=== PATIENT | male | born 1990 | race Caucasian/White ===

== ENCOUNTER 2025-02-03 15:22 | Emergency (ER) | payer OTHER, SELFPAY ==
[2025-02-03] VITALS (8 sets, daily range): BP systolic 119–149; BP diastolic 66–108; PULSE 78–98; RESP 14–22; TEMP 36.9; O2SAT 94–97
--- OUTSIDE RECORDS SUMMARY | 2025-02-03 09:30 | XMS_ITS | Encounter Summary ---
Author Organization [facility] Address [address] [place] [address] Care Team Providers Care Bolt Sorter Name Role Phone Mary Farr MD Primary Care Provider [phone] Reason for Visit * Reason Comments moods and drinking follow up Patient sta amie things are not improving and actually feels like they are getting worse. Flu shot Patient declined flu shot today. Encounter Details Date Type Department Care Team (Late st Contact Info) Description 02/03/2025 9:30 AM AFTER SCHOOL CAREGIVER Office Visit [facility] at Work [employer] [place] [address] [place] [address] Nicole Brooke, [facility] [address] [place] [address] Alcohol abuse, daily use (Primary Dx); Mixed anxiety and depressive disorder; History of suicidal behavior Social History Tobacco Use Types Packs/Day Years Used Date Smoking Tobacco: Former Cigarettes 0.3 10 Alcohol Use Standard Drinks/Week Comments Yes 25 (1 standard drink = 0.6 oz pu re alcohol) Sex and Gender Information Value Date Recorded Sex Assigned at Not on file Legal Sex Male 12:22 PM AFTER SCHOOL CAREGIVER Gender Identity Not on file Sexual Orientation Not on file documented as of this encounter Last Filed Vital Signs Vital Sign Reading Time Taken Comments Blood Pressure 134/82 02/03/2025 8:59 AM AFTER SCHOOL CAREGIVER Pulse 105 02/03/2025 8:59 AM AFTER SCHOOL CAREGIVER Temperature 36.6 C (97.8 F) 02/03/2025 8:59 AM AFTER SCHOOL CAREGIVER Respiratory Rate 18 02/03/2025 8:59 AM AFTER SCHOOL CAREGIVER Oxygen Saturation 97% 02/03/2025 8:59 AM AFTER SCHOOL CAREGIVER Inhaled Oxygen Concentration - - Weight 107.5 kg (237 lb) 02/03/2025 8:59 AM AFTER SCHOOL CAREGIVER Height 175.3 cm (5' 9) 02/03/2025 8:59 AM AFTER SCHOOL CAREGIVER Body Mass Index 35 02/03/2025 8:59 AM AFTER SCHOOL CAREGIVER documented in this encounter Progress Notes * Nicole Brooke ANP - 02/03/2025 9:44 AM CST Depression Screen Positive: PHQ-2 score >= 3 or PHQ-9 score >= 9 PHQ-2 Total: 5 (02/03/2025 9:00 AM) PHQ-9 Total: 17 (02/03/2025 9:00 AM) DEPRESSION PLAN OF CARE His depression screen was positive. Referral to [facility] for follow-up R SCHOOL CAREGIVER * Nicole Brooke ANP - 02/03/2025 9:17 AM CST HISTORY OF PRESENT ILLNESS Karsten Rice, a 34 y.o. male presents with a Chief Complaint of moods and drinking follow up (Patient states things are not improving and actually feels like they are getting worse.) and Flu shot (Patient declined flu shot today.) Here in follow up of anxiety and alcohol abuse. Drinking 10-15 liquor shots per day. Living with Sister and brother in law since moving here from [facility] for this job at [employer]. has had enough and threatened divorce. 12/10 he was found in a park reported nude and planning to take his life by walking into the water to drown himself. He was taken into police custody before the attempt. Taken to [facility] ,[place], [place] . Transferred to psych unit x 24 hours and monitored. Discharged home to follow up with therapist. No psychiatry FU or medication changes. ED report states he planned to use firearms to kill himself. Currently reports no access to firearms. Reports gets shaky when tries to stop drinking. Currently he is interested in medication to help him stop drinking fully. He is willing to go to rehab as long as his job is not effected. REVIEW OF SYSTEMS Review of Systems Constitutional: Positive for fatigue. Respiratory: Negative. Cardiovascular: Negative. Psychiatric/Behavioral: Positive for dysphoric mood and sleep disturbance. Negative for self-injuryand suicidal ideas (none current). The patient is nervous/anxious. Objective PHYSICAL EXAM BP 134/82 (BP Location: Right arm, Patient Position (BP): Sitting, BP Cuff Size: Adult) Pulse (!)105 Temp 97.8 ??F (36.6 ??C) (Tympanic) Resp 18 Ht 5' 9 (1.753 m) Wt 107.5 kg (237 lb) SpO2 97% BMI 35.00 kg/m?? Physical Exam Constitutional: General: He is not in acute distress. HENT: Head: Normocephalic. Eyes: General: No scleral icterus. Conjunctiva/sclera: Conjunctivae normal. Cardiovascular: Rate and Rhythm: Normal rate and regular rhythm. Heart sounds: Normal heart sounds. Musculoskeletal: Cervical back: Neck supple. Psychiatric: Mood and Affect: Mood normal. Comments: Mildly anxious. Good eye contact. Answers questions easily. Well groomed Procedures Assessment ASSESSMENT and PLAN: 1. Alcohol abuse, daily use (Primary) Recommend inpt or OP rehab, pending on facility assessment. He is willing. Was given contact information for [facility] and he will call today. He reports good support from . 2. Mixed anxiety and depressive disorder Increase zoloft dose. - sertraline (Zoloft) 100 mg tablet; Take 1 Tablet (100 mg) by mouth daily. Dispense: 30 Tablet; Refill: 0 3. History of suicidal behavior Not actively suicidal. Monitor. FOLLOW UP 4 weeks or with rehab facility. Appropriate medications prescribed and pt instructed in risks , benefits and side effects. Appropriate patient instructions provided . See details in AVS Medications and options explained to include common side effects. Understanding of medications, course, diagnosis, and expectations were expressed by patient/guardian. Pt advised to call my office in one week if not contacted with any ordered test results. TORSTEN Ha 02/03/2025 [facility] [employer] [facility] [address] [address] Some of this encounter may have been transcribed using [employer] computerized voicerecognition without a human moisture meter reader. This report may or may not have been adjusted for typographical or medical and syntax errors. R SCHOOL CAREGIVER documented in this encounter Miscellaneous Notes * Patient Instructions - Nicole Brooke ANP - 02/03/2025 9:30 AM AFTER SCHOOL CAREGIVER For more than four decades, [facility]??? has provided comprehensive addiction treatment for adults ages 18 and older. Addiction and mental illness are treatable yet chronic health problems. Many individuals living with alcohol and drug addiction also have a mental health issue. Our res earch-tested programs address both addiction and mental health to help adults achieve recovery and maintain sobriety. We believe that people should get addiction treatment in the least restrictive environment possible. Assessment An assessment is the first step in determining what treatment, if any, is needed. It takes into account all aspects of a person???s life to ensure that individual needs are addressed. To learn more, call us at [phone]. For [facility] and for the [facility], call [phone]. For the [facility], call [phone]. Based on assessment results, we create a unique treatment plan. Length of treatment depends on the person's progress toward goals. Outpatient Treatment This type of treatment lets individuals work on their recovery while living at home. It is appropriate for those who are struggling with addiction and are ready to learn to abstain from substance use, are motivated to change, and have a supportive living environment. Outpatient treatment involves up to eight hours of counseling each week. Patients are encouraged to continue their work in self-help groups such as Alcoholics Anonymous (AA), Narcotics Anonymous (NA), and Celebrate Recovery. Intensive Outpatient Treatment This type of treatment requires nine or more hours of counseling each week. Treatment occurs in a small group setting. Length of treatment is determined by the patient???s needs. As with outpatient treatment, participation in self-help groups is encouraged. Residential Treatment This type of treatment is for adults who need a structured and supportive environment to maintain recovery and who require help to prevent further damage to their physical and emotional health. Licensed and certified counselors provide treatment in a comfortable setting. Residents participate in individual, group, and family counseling and learn life skills such as decision-making, stress management, assertiveness, coping, and relapse prevention. Care is supervised 24 hours a day. Residents have access to a psychiatrist, medical services, catered meals, and recreation. An important part of residential treatment is developing a continuing care program, which may include outpatient counselingand referrals to community support groups. Medication-Assisted Treatment This type of treatment helps people living with addiction to deal with the short-term and long-termeffects of withdrawal. MAT helps individuals manage physical symptoms and reduce cravings while focusing on recovery and behavior changes. MAT combines medication, counseling, and community support to help people overcome dependence on opiates like heroin and prescription painkillers. [place], [place] [phone] Partner with [facility] in [facility] [place] [address] [place] [address] [facility] -- in [place], [place] R SCHOOL CAREGIVER R SCHOOL CAREGIVER R SCHOOL CAREGIVER R SCHOOL CAREGIVER R SCHOOL CAREGIVER documented in this encounter Plan of Treatment Upcoming Encounters Date Type Department Care Team (Late st Contact Info) Description 03/03/2025 9:00 AM AFTER SCHOOL CAREGIVER Office Visit [facility] at Work [employer] [place] [address] [place] [address] Nicole Brooke ANP [address] [place] [address] documented as of this encounter Visit Diagnoses Diagnosis Alcohol abuse, daily use- Primary Nondependent alcohol abuse, continuous drinking behavior Mixed anxiety and depressive disorder Dysthymic disorder History of suicidal behavior documented in this encounter Additional Health Concerns Assessment Noted Time PHQ-9 Depression Total Score: 5 02/04/20 25 9:00 AM AFTER SCHOOL CAREGIVER documented as of this encounter Care Teams Bolt Sorter Relationship Specialty Start Date End Date Mary Farr MD [address] [place] [id number] PCP - General Internal Medicine 10/28/24 documented as of this encounter
--- OUTSIDE RECORDS SUMMARY | 2025-02-03 09:30 | XMS_ITS | Encounter Summary ---
Author Organization [facility] Address [address] [place] [address] Care Team Providers Care Building Coordinator Name Role Phone Mary Farr MD Primary Care Provider Reason for Visit * Reason Comments moods and drinking follow up Patient sta amie things are not improving and actually feels like they are getting worse. Flu shot Patient declined flu shot today. Encounter Details Date Type Department Care Team (Late st Contact Info) Description 02/03/2025 9:30 AM STUDIO OPERATIONS MANAGER Office Visit [facility] at Work [employer] [address] [place] [address] Nicole Brooke, [facility] [address] [place] [address] Alcohol abuse, daily use (Primary [...] on file Legal Sex Male 12:22 PM STUDIO OPERATIONS MANAGER Gender Identity Not on file Sexual Orientation Not on file documented as of this encounter Last Filed Vital Signs Vital Sign Reading Time Taken Comments Blood Pressure 134/82 02/03/2025 8:59 AM STUDIO OPERATIONS MANAGER Pulse 105 02/03/2025 8:59 AM STUDIO OPERATIONS MANAGER Temperature 36.6 C (97.8 F) 02/03/2025 8:59 AM STUDIO OPERATIONS MANAGER Respiratory Rate 18 02/03/2025 8:59 AM STUDIO OPERATIONS MANAGER Oxygen Saturation 97% 02/03/2025 8:59 AM STUDIO OPERATIONS MANAGER Inhaled Oxygen Concentration - - Weight 107.5 kg (237 lb) 02/03/2025 8:59 AM STUDIO OPERATIONS MANAGER Height 175.3 cm (5' 9) 02/03/2025 8:59 AM STUDIO OPERATIONS MANAGER Body Mass Index 35 02/03/2025 8:59 AM STUDIO OPERATIONS MANAGER documented in this encounter Progress Notes * Nicole Brooke ANP - 02/03/2025 9:44 AM CST Depression Screen Positive: PHQ-2 score >= 3 or PHQ-9 score >= 9 PHQ-2 Total: 5 (02/03/2025 9:00 AM) PHQ-9 Total: 17 (02/03/2025 9:00 AM) DEPRESSION PLAN OF CARE His depression screen was positive. Referral to [facility] for follow-up IO OPERATIONS MANAGER * Nicole Brooke ANP - 02/03/2025 9:17 [...] brother in law since moving here from [facility] for this job at [employer]. has had enough and threatened divorce. 12/10 he was found in a park reported nude and planning to take his life by walking into the water to drown himself. He was taken into police custody before the attempt. Taken to [facility] ,[place], [place] . Transferred to psych unit x [...] is willing. Was given contact information for [employer] and he will call today. He reports [...] any ordered test results. TORSTEN Ha 02/03/[address] [facility] [employer] [facility] [address] [address] Some of this encounter may have been transcribed using [employer] Speaking computerized voicerecognition without a human travel specialist. This report may or may not have been adjusted for typographical or medical and syntax errors. IO OPERATIONS MANAGER documented in this encounter Miscellaneous Notes * Patient Instructions - Nicole Brooke ANP - 02/03/2025 9:30 AM STUDIO OPERATIONS MANAGER For more than four decades, [facility]??? has provided comprehensive addiction treatment for [...] addressed. To learn more, call us at [phone]. For [facility] and for the [facility], call [phone]. For the [facility], call [phone]. Based on assessment results, we create a [...] on opiates like heroin and prescription painkillers. [place], [place] [phone] Partner with [facility] in [facility] [place] [address] [place] [address] [facility] -- in [place], [place] IO OPERATIONS MANAGER IO OPERATIONS MANAGER IO OPERATIONS MANAGER IO OPERATIONS MANAGER IO OPERATIONS MANAGER documented in this encounter Plan of Treatment Upcoming Encounters Date Type Department Care Team (Late st Contact Info) Description 03/03/2025 9:00 AM STUDIO OPERATIONS MANAGER Office Visit [facility] at Work [employer] [address] [place] [address] Nicole Brooke ANP [address] [place] [address] documented as of this encounter Visit Diagnoses Diagnosis Alcohol abuse, daily use- Primary Nondependent alcohol abuse, continuous drinking behavior Mixed anxiety and depressive disorder Dysthymic disorder History of suicidal behavior documented in this encounter Additional Health Concerns Assessment Noted Time PHQ-9 Depression Total Score: 5 02/04/20 25 9:00 AM STUDIO OPERATIONS MANAGER documented as of this encounter Care Teams Building Coordinator Relationship Specialty Start Date End Date Mary Farr MD [address] [place] [phone] PCP - General Internal Medicine 10/28/24 documented as of this encounter
--- NOTE | 2025-02-03 15:26 | ECG_ITS ---
Test Date: 2025-02-03 15:44:[address] Rate: 98 P: 9 AR: 136 QRS: -16 QRSD: 109 T: -24 QT: 342 QTc: 437 Interpretive Statements SINUS RHYTHM INCOMPLETE RIGHT BUNDLE BRANCH BLOCK VOLTAGE CRITERIA FOR LVH, CONSIDER NORMAL VARIANT NONSPECIFIC T-WAVE ABNORMALITY No previous ECG available for comparison Electronically Signed On 02-04-2025 05:50:42 GROUNDS MANAGER by Joe Rubio D.O
[2025-02-03 15:49] LABS: Hematocrit 51.6 % (42.0-52.0); Hemoglobin 17.8 g/dL (14.0-18.0); Immature Granulocyte Percent A 0.7 % (0-0.5); Lymphocytes Absolute Auto 1.81 K/mm3 (0.9-3.2); Mean Corpuscular HGB Conc 34.5 g/dl (32-36); Mean Corpuscular Hemoglobin 31.3 pg (26-34); Mean Corpuscular Volume 90.7 fl (80-100); Nucleated Red Blood Cells Absolute Auto 0.000 K/mm3 (0.0-0.012); Nucleated Red Blood Cells Perc 0.0 % (0.0-0.2); Platelet Count Result 389 k/mm3 (150-375); Red Blood Count 5.69 M/mm3 (4.6-6.20); White Blood Count 10.3 K/mm3 (4.5-10.0)
--- NOTE | 2025-02-03 15:53 | PC.NURSE ---
This RN spoke with [place] pharmacist with poison control. Overdose is suspected but not confirmed. Pt. possibly overdosed on 52, 800mg (41,600mg total) Dolprofen tablets. Per pharmacist, majority of symptoms will be GI related. Best treat with a PPI medication. More severe symptoms are seen when pt. takes 400mg/kg, which would be 43,600mg for this pt. Symptomatic/supportive care recommended.
[2025-02-03 16:02] LABS: Acetaminophen < 10 ug/mL (10-30); Salicylate < 1.0 mg/dL (2-20)
[2025-02-03 16:03] LABS: Alanine Aminotransferase 31 U/L (6-50); Albumin Level 4.4 g/dL (3.5-5.1); Alkaline Phosphatase 67 U/L (38-126); Anion Gap 15 mmol/L (4-12); Aspartate Amino Transferase 39 U/L (17-59); Bilirubin,Total 0.5 mg/dL (0.2-1.3); Blood Urea Nitrogen 8 mg/dL (9-20); Calcium 8.4 mg/dL (8.4-10.2); Carbon Dioxide 20 mmol/L (22-30); Chloride 105 mmol/L (98-107); Estimated CRCL calculation 86 ml/min; Estimated Glomerular Filt Rate > 60; Glucose 105 mg/dL (65-110); Potassium 3.2 mmol/L (3.4-5.0); Sodium 140 mmol/L (137-145); Total Protein 7.6 g/dL (6.3-8.2)
[2025-02-03 16:25] LABS: SARS-CoV-2 RNA PCR Negative (Negative)
[2025-02-03 16:29] LABS: Cannabinoid Screen Urine Negative (Negative)
[2025-02-03 16:32] LABS: Add Urine Microscopic? YES; Appearance Urine Clear (Clear); Glucose Urine UA Negative (Negative); Leukocyte Esterase Ur 1+ LEU/UL (Negative); Need Manual Microscopic Reviewed; Nitrate Urine Negative (Negative); Non Pathogenic Casts 0-2; Specific Grav Ur 1.007 (1.001-1.035)
--- NOTE | 2025-02-03 16:32 | PC.NURSE ---
Pt. is alert, A&Ox4. at bedside. Speech clear. Pt. admits to drinking 15 fireball and taking 52, 800mg Dolprofen at 1400 in attempt to end his life. Denies HI. Earring gauges and 2x nose piercings removed from pt. nose per policy and given to pt. who is at bedside..
[2025-02-03 16:33] LABS: Thyroid Stimulating Hormone 1.750 uIU/mL (0.465-4.680)
--- NOTE | 2025-02-03 16:38 | ED_ITS ---
HPI - General Adult General Chief complaint: Overdose <Brayden Miramontes MD - Last Filed: 02/04/25 07:41> Stated complaint: intentional OD <Brayden Miramontes MD - Last Filed: 02/04/25 07:41> Time Seen by Provider: 02/03/25 15:24 <Brayden Miramontes MD - Last Filed: 02/04/25 07:41> History of Present Illness HPI narrative: 34-year-old male presents to the emergency department for evaluation after an intentional overdose attempt. Patient has been struggling depression for an extended period time. Patient does not have follow-up with Psychiatry or a counselor. Patient reportedly drank 15 shots of fireball along with 50 to x 800 mg. Patient states this was an attempt for suicide. Poison Control was consulted. <Brayden Miramontes MD - Last Filed: 02/04/25 07:41> Related Data Allergies/adverse reactions: Allergies Allergy/AdvReac Type Severity Reaction Status Date / Time No Known Allergies Allergy Verified 02/03/25 16:23 <Brayden Miramontes MD - Last Filed: 02/04/25 07:41> Review of Systems 2 Review of Systems: All systems reviewed & are unremarkable except as noted in HPI and below <Brayden Miramontes MD - Last Filed: 02/04/25 07:41> Exam 2 Narrative: APPEARANCE: Well appearing, no pain, no distress, well-nourished. HEAD: normocephalic, atraumatic. EYES: PERRLA/EOMI, conjunctivae clear. NOSE: Normal no drainage EARS:TMS clear with good light reflex. THROAT: Pharynx clear, no exudate. NECK: Supple. No adenopathy, no masses. RESPIRATORY: Airway patent, respirations nonlabored. Clear to auscultation bilaterally, no rales, rhonchi, wheezing. CARDIOVASCULAR: Regular rate and rhythm without murmurs rubs or gallops. ABDOMINAL: Soft, nontender, nondistended, normal bowel sounds MUSCULOSKELETAL: Moves all extremities. Strength/ROM intact, No edema, No calf tenderness. NEURO: Alert. Cranial nerves II through XII intact. Good gait. Good coordination SKIN: Warm, dry. Normal Color <Brayden Miramontes MD - Last Filed: 02/04/25 07:41> Course Course Emergency Course: Patient care signed over by previous provider pending sobriety and psychiatric evaluation. Patient is hemodynamically stable. Repeat alcohol level on repeat kidney function are normal and alcohol level under 80. Cleared for psychiatric evaluation at this time. Sitter still at bedside. Patient calm and cooperative. Awaiting behavioral health evaluation at this time. Behavioral health team has evaluated the patient and after long discussions with the patient and his felt like he was appropriate for safety planning and going home with regular outpatient follow-up. Patient would like to go home at this time and safe for discharge after safety plan by crisis team. Family member () comfortable with the plan. <Guille Flores MD - Last Filed: 02/04/25 02:10> Vital Signs Vital signs: Vital Signs Temperature 98.5 F 02/03/25 15:20 Pulse Rate 96 02/03/25 15:20 Respiratory Rate 14 02/03/25 15:20 Blood Pressure 149/108 H 02/03/25 15:20 Pulse Oximetry 95 02/03/25 15:20 Oxygen Delivery Room Air 02/03/25 15:20 Temperature 98.5 F 02/03/25 15:20 Pulse Rate 80 02/04/25 01:33 Respiratory Rate 19 02/04/25 01:33 Blood Pressure 130/82 02/04/25 01:33 Pulse Oximetry 100 02/04/25 01:33 Oxygen Delivery Room Air 02/03/25 15:38 <Brayden Miramontes MD - Last Filed: 02/04/25 07:41> Vital Signs Temperature 98.5 F 02/03/25 15:20 Pulse Rate 96 02/03/25 15:20 Respiratory Rate 14 02/03/25 15:20 Blood Pressure 149/108 H 02/03/25 15:20 Pulse Oximetry 95 02/03/25 15:20 Oxygen Delivery Room Air 02/03/25 15:20 Temperature 98.5 F 02/03/25 15:20 Pulse Rate 80 02/04/25 01:33 Respiratory Rate 19 02/04/25 01:33 Blood Pressure 130/82 02/04/25 01:33 Pulse Oximetry 100 02/04/25 01:33 Oxygen Delivery Room Air 02/03/25 15:38 <Guille Flores MD - Last Filed: 02/04/25 02:10> Medical Decision Making MDM Narrative Medical decision making narrative: 34-year-old male present to the emergency department for evaluation for alcohol and ibuprofen overdose. Patient states he no longer wishes to . Patient is currently afebrile but does have a leukocytosis of 10.3 hemoglobin of 17.8. Patient has a mild elevation of creatinine of 1.32, patient is tolerating p.o.. Patient UA was negative for infection and patient's drug screen was negative for salicylates and acetaminophen. Patient's ethanol was elevated at 213 at 3:39 p.m. repeat blood alcohol is pending. Once patient is medically cleared he will need to be evaluated by crisis. <Brayden Miramontes MD - Last Filed: 02/04/25 07:41> Vital Signs Vital Signs: Vital Signs Temperature 98.5 F 02/03/25 15:20 Pulse Rate 96 02/03/25 15:20 Respiratory Rate 14 02/03/25 15:20 Blood Pressure 149/108 H 02/03/25 15:20 Pulse Oximetry 95 02/03/25 15:20 Oxygen Delivery Room Air 02/03/25 15:20 Temperature 98.5 F 02/03/25 15:20 Pulse Rate 80 02/04/25 01:33 Respiratory Rate 19 02/04/25 01:33 Blood Pressure 130/82 02/04/25 01:33 Pulse Oximetry 100 02/04/25 01:33 Oxygen Delivery Room Air 02/03/25 15:38 <Brayden Miramontes MD - Last Filed: 02/04/25 07:41> Vital Signs Temperature 98.5 F 02/03/25 15:20 Pulse Rate 96 02/03/25 15:20 Respiratory Rate 14 02/03/25 15:20 Blood Pressure 149/108 H 02/03/25 15:20 Pulse Oximetry 95 02/03/25 15:20 Oxygen Delivery Room Air 02/03/25 15:20 Temperature 98.5 F 02/03/25 15:20 Pulse Rate 80 02/04/25 01:33 Respiratory Rate 19 02/04/25 01:33 Blood Pressure 130/82 02/04/25 01:33 Pulse Oximetry 100 02/04/25 01:33 Oxygen Delivery Room Air 02/03/25 15:38 <Guille Flores MD - Last Filed: 02/04/25 02:10> Lab Data Result diagrams: 02/03/25 15:39 02/03/25 22:11 <Brayden Miramontes MD - Last Filed: 02/04/25 07:41> Labs: Lab Results 02/03/25 02/03/25 02/03/25 Range/Units 15:39 16:02 22:11 WBC 10.3 H (4.5-10.0) K/mm3 RBC 5.69 (4.6-6.20) M/mm3 Hgb 17.8 (14.0-18.0) g/dL Hct 51.6 (42.0-52.0) % MCV 90.7 (80-100) fl MCH 31.3 (26-34) pg MCHC 34.5 (32-36) g/dl RDW 13.2 (11.5-14.5) % Plt Count 389 H (150-375) k/mm3 MPV 8.6 (7.4-10.4) fl Immature Gran % (Auto) 0.7 H (0-0.5) % Neut % (Auto) 72.2 (45.5-73.1) % Lymph % (Auto) 17.5 L (18.3-44.2) % Lipscomb % (Auto) 7.5 (2.6-8.5) % Eos % (Auto) 1.1 (0-4.4) % Baso % (Auto) 1.0 (0.2-1.2) % Lymph # (Auto) 1.81 (0.9-3.2) K/mm3 Lipscomb # (Auto) 0.8 H (0.1-0.6) K/mm3 Eos # (Auto) 0.1 (0-0.3) K/mm3 Baso # (Auto) 0.1 (0.0-0.1) K/mm3 Abs Immat Gran (auto) 0.07 H (0.00-0.031) K/mm3 Absolute Neuts (auto) 7.5 H (1.3-6.7) K/mm3 Absolute Nucleated RBC 0.000 (0.0-0.012) K/mm3 Nucleated RBC % 0.0 (0.0-0.2) % Sodium 140 139 (137-145) mmol/L Potassium 3.2 L 3.4 (3.4-5.0) mmol/L Chloride 105 107 (98-107) mmol/L Carbon Dioxide 20 L 20 L (22-30) mmol/L Anion Gap 15 H 12 (4-12) mmol/L BUN 8 L 8 L (9-20) mg/dL Creatinine 1.32 H 1.23 (0.7-1.3) mg/dL Estim Creat Clear Calc 86 92 ml/min Estimated GFR > 60 > 60 (59 - ) Glucose 105 96 (65-110) mg/dL Calcium 8.4 8.4 (8.4-10.2) mg/dL Total Bilirubin 0.5 (0.2-1.3) mg/dL AST 39 (17-59) U/L ALT 31 (6-50) U/L Alkaline Phosphatase 67 (38-126) U/L Total Protein 7.6 (6.3-8.2) g/dL Albumin 4.4 (3.5-5.1) g/dL TSH 1.750 (0.465-4.680) uIU/mL Urine Color Yellow (Yellow) Urine Appearance Clear (Clear) Urine pH 6.0 (5.0-9.0) Ur Specific [place] 1.007 (1.001-1.035) Urine Protein Trace (Negative) mg/dL Urine Glucose (UA) Negative (Negative) mg/dL Urine Ketones Negative (Negative) mg/dL Ur Blood (Man) Negative (Negative) Urine Nitrate Negative (Negative) Urine Bilirubin Negative (Negative) Urine Urobilinogen 0.2 (<2.0) mg/dL Add Ur Microanalysis Reviewed Leukocyte Esterase Rfl 1+ H (Negative) CYNTHIA/UL Urine RBC 0-2 (0-2) /hpf Urine WBC 0-5 (0-3) /hpf Ur Squamous Epith Cells None seen (Few) /hpf Urine Bacteria None seen /hpf Urine Casts 0-2 Salicylates < 1.0 L (2-20) mg/dL Urine Opiates Screen Negative (Negative) Urine Methadone Screen Negative (Negative) Acetaminophen < 10 L (10-30) ug/mL Ur Barbiturates Screen Negative (Negative) Ur Phencyclidine Scrn Negative (Negative) Ur Amphetamine Screen Negative (Negative) U Benzodiazepines Scrn Negative (Negative) Urine Cocaine Screen Negative (Negative) U Cannabinoids Screen Negative (Negative) Ethyl Alcohol 213 79 (<10) mg/dL SARS-CoV-2 RNA (RT-PCR) Negative (Negative) <Brayden Miramontes MD - Last Filed: 02/04/25 07:41> Lab Results 02/03/25 02/03/25 02/03/25 Range/Units 15:39 16:02 22:11 WBC 10.3 H (4.5-10.0) K/mm3 RBC 5.69 (4.6-6.20) M/mm3 Hgb 17.8 (14.0-18.0) g/dL Hct 51.6 (42.0-52.0) % MCV 90.7 (80-100) fl MCH 31.3 (26-34) pg MCHC 34.5 (32-36) g/dl RDW 13.2 (11.5-14.5) % Plt Count 389 H (150-375) k/mm3 MPV 8.6 (7.4-10.4) fl Immature Gran % (Auto) 0.7 H (0-0.5) % Neut % (Auto) 72.2 (45.5-73.1) % Lymph % (Auto) 17.5 L (18.3-44.2) % Lipscomb % (Auto) 7.5 (2.6-8.5) % Eos % (Auto) 1.1 (0-4.4) % Baso % (Auto) 1.0 (0.2-1.2) % Lymph # (Auto) 1.81 (0.9-3.2) K/mm3 Lipscomb # (Auto) 0.8 H (0.1-0.6) K/mm3 Eos # (Auto) 0.1 (0-0.3) K/mm3 Baso # (Auto) 0.1 (0.0-0.1) K/mm3 Abs Immat Gran (auto) 0.07 H (0.00-0.031) K/mm3 Absolute Neuts (auto) 7.5 H (1.3-6.7) K/mm3 Absolute Nucleated RBC 0.000 (0.0-0.012) K/mm3 Nucleated RBC % 0.0 (0.0-0.2) % Sodium 140 139 (137-145) mmol/L Potassium 3.2 L 3.4 (3.4-5.0) mmol/L Chloride 105 107 (98-107) mmol/L Carbon Dioxide 20 L 20 L (22-30) mmol/L Anion Gap 15 H 12 (4-12) mmol/L BUN 8 L 8 L (9-20) mg/dL Creatinine 1.32 H 1.23 (0.7-1.3) mg/dL Estim Creat Clear Calc 86 92 ml/min Estimated GFR > 60 > 60 (59 - ) Glucose 105 96 (65-110) mg/dL Calcium 8.4 8.4 (8.4-10.2) mg/dL Total Bilirubin 0.5 (0.2-1.3) mg/dL AST 39 (17-59) U/L ALT 31 (6-50) U/L Alkaline Phosphatase 67 (38-126) U/L Total Protein 7.6 (6.3-8.2) g/dL Albumin 4.4 (3.5-5.1) g/dL TSH 1.750 (0.465-4.680) uIU/mL Urine Color Yellow (Yellow) Urine Appearance Clear (Clear) Urine pH 6.0 (5.0-9.0) Ur Specific [place] 1.007 (1.001-1.035) Urine Protein Trace (Negative) mg/dL Urine Glucose (UA) Negative (Negative) mg/dL Urine Ketones Negative (Negative) mg/dL Ur Blood (Man) Negative (Negative) Urine Nitrate Negative (Negative) Urine Bilirubin Negative (Negative) Urine Urobilinogen 0.2 (<2.0) mg/dL Add Ur Microanalysis Reviewed Leukocyte Esterase Rfl 1+ H (Negative) CYNTHIA/UL Urine RBC 0-2 (0-2) /hpf Urine WBC 0-5 (0-3) /hpf Ur Squamous Epith Cells None seen (Few) /hpf Urine Bacteria None seen /hpf Urine Casts 0-2 Salicylates < 1.0 L (2-20) mg/dL Urine Opiates Screen Negative (Negative) Urine Methadone Screen Negative (Negative) Acetaminophen < 10 L (10-30) ug/mL Ur Barbiturates Screen Negative (Negative) Ur Phencyclidine Scrn Negative (Negative) Ur Amphetamine Screen Negative (Negative) U Benzodiazepines Scrn Negative (Negative) Urine Cocaine Screen Negative (Negative) U Cannabinoids Screen Negative (Negative) Ethyl Alcohol 213 79 (<10) mg/dL SARS-CoV-2 RNA (RT-PCR) Negative (Negative) <Guille Flores MD - Last Filed: 02/04/25 02:10> Discharge Plan Discharge Clinical Impression: Drug overdose <Brayden Miramontes MD - Last Filed: 02/04/25 07:41> Patient Disposition: Home <Brayden Miramontes MD - Last Filed: 02/04/25 07:41> Condition: Stable <Brayden Miramontes MD - Last Filed: 02/04/25 07:41> Additional Instructions: Follow-up with psychiatry. Return with any emergencies. <Brayden Miramontes MD - Last Filed: 02/04/25 07:41> Patient Language: Armenian <Brayden Miramontes MD - Last Filed: 02/04/25 07:41> Follow-up/Referrals: PHYSICIAN,BRUSHER WARP [Primary Care Provider, Internal Medicine] <Brayden Miramontes MD - Last Filed: 02/04/25 07:41> Stand Alone Forms: Work/School Release IP <Brayden Miramontes MD - Last Filed: 02/04/25 07:41> Time of Disposition: 01:08 <Brayden Miramontes MD - Last Filed: 02/04/25 07:41> 01:08 <Guille Flores MD - Last Filed: 02/04/25 02:10>
--- NOTE | 2025-02-03 16:49 | PC.NURSE ---
This RN contacted poison control again now that there is a timeline. This RN spoke with Balwinder, pharmacist, again. Balwinder states that Ibuprofen peaks in 1-2 hours. Pt. is beyond the peak, since medication was taken at 1400 and it is 1650 now. Pt. status has improved since EMS transport and arrival to [place], which is reassuring. If pt. becomes more drowsy, poison control recommends an ABG. Poison control does not think pt. will require medical hospital admission for the ibuprofen overdose d/t it being fast acting. They believe the alcohol is the main cause of his drowsiness. Dr. Miramontes updated.
--- OUTSIDE RECORDS SUMMARY | 2025-02-03 17:51 | XMS_ITS | Clinical Summary ---
Author Organization [facility] Address [address] [place] [address] Care Team Providers Care Rotor Assembler Name Role Phone None, Provider MD Primary Care Provider Unavaila ble Allergies No known active allergies Medications sertraline (ZOLOFT) 50 MG tablet Take 1 tablet (50 mg total) by mouth daily. Active omeprazole (PRILOSEC) 2 mg/mL Suspension oral suspension Take by mouth daily. Active Encounters Date Type Department Care Team Description 12/10/2024 3:40 PM CDT - 12/11/2024 3:14 AM CDT Emergency [facility] [address] [place] [address] Ally Simpson DO Behavioral Problem Discharge Disposition: Home or Self Care (Routine Discharge) 12/10/2024 Travel from Last 3 Months Family History Medical History Relation Comments No Known Problems Father No Known Problems Mother Relation Status Comments Father Alive Mother Alive Social History Tobacco Use Types Packs/Day Years Used Date Smoking Tobacco: Every Day Cigarettes Smokeless Tobacco: Never Tobacco Cessation:Ready to Q uit: Not Asked; Counseling Given: Not Answered Alcohol Use Standard Drinks/Week Comments Yes 0 (1 standard drink = 0.6 oz pur e alcohol) Sex and Gender Information Value Date Recorded Sex Assigned at Male 12/10/2024 4:23 PM CDT Legal Sex Male 3:31 PM CDT Gender Identity Male 12/10/2024 4:23 PM CDT Sexual Orientation Not on file Last Filed Vital Signs Vital Sign Reading Time Taken Comments Blood Pressure 143/94 12/11/2024 12:14 AM CDT Pulse 87 12/11/2024 12:14 AM CDT Temperature 36.2 C (97.1 F) 12/10/2024 3:40 PM CDT Respiratory Rate 16 12/11/2024 12:14 AM CDT Oxygen Saturation 98% 12/11/2024 12:14 AM CDT Inhaled Oxygen Concentration - - Weight 104.4 kg (230 lb 2 oz) 12/10/2024 3:40 PM CDT Height 175.3 cm (5' 9) 12/10/2024 3:40 PM CDT Body Mass Index 33.98 12/10/2024 3:40 PM CDT Plan of Treatment Health Maintenance Due Date Last Done Comments Annual Physical 1993 Hepatitis C 2008 DTaP, Tdap and Td Vaccines ( 1 - Tdap) 2009 Hepatitis B Vaccines (1 of 3 - 19+ 3-dose series) 2009 Pneumococcal Vaccine: Pediat rics (0 to 5 Years) and At-Risk Patients (6 to 49 Years) (1 of 2 - PCV) 2009 HPV Vaccines (1 - 3-dose SCD M series) 2017 COVID-19 Vaccine (2024-2 6 season) 2024 Influenza Adult (#1) 2024 Hepatitis A Vaccines Aged Out No long er eligible based on patient's age to complete this topic Meningococcal B Vaccine Aged Out No l onger eligible based on patient's age to complete this topic Meningococcal Vaccine Aged Out No anirudh simran eligible based on patient's age to complete this topic RSV Immunizations Under 20 Months Aged Out No longer eligible based on patient's age to complete this topic Procedures Procedure Name Priority Date/Time Associated Diagnosis Comments HC DRUG SCREEN PRESUMPTIVE INSTRUMENT T3 STAT 12/11/2024 12:11 AM CDT HC DRUG SCREEN PRESUMPTIVE INSTRUMENT T3 STAT 12/10/2024 10:06 PM CDT ECG 12-LEAD STAT 12/10/2024 4:09 PM CDT HC DRUG SCREEN PRESUMPTIVE INSTRUMENT T1 STAT 12/10/2024 4:07 PM CDT HC THYROID STIMULATING HORM STAT 12/10/2024 4:07 PM CDT HC DRUG SCREEN PRESUMPTIVE INSTRUMENT T2 STAT 12/10/2024 4:07 PM CDT HC DRUG SCREEN PRESUMPTIVE INSTRUMENT T3 STAT 12/10/2024 4:07 PM CDT HC COMPREHENSIVE METABOL PANEL STAT 12/10/2024 4:07 PM CDT HC CBC AUTO W/AUTO DIFF STAT 12/10/2024 4:07 PM CDT CORONAVIRUS (COVID-19) ANTIGEN STAT 12/10/2024 4:00 PM CDT DRUG SCREEN RAPID STAT 12/10/2024 4:0 0 PM CDT HC URINALYSIS AUTO W/MICRO STAT 12/10/2024 4:00 PM CDT from Last 3 Months Results * (ABNORMAL) ETHANOL (12/11/2024 12:11 AM CDT) Only the most recent of3 resultswithin the time period is included. ALCOHOL S/P/B 0.068(H) <0.003 G/DL 12/11/2024 12:26 AM CDT [facility] 12/11/2024 12:1 1 AM CDT us Ally Simpson DO LABORATORY Final Result [facility] [address] [place] [id number], * ECG 12 lead (12/10/2024 4:09 PM CDT) 12/10/2024 4:09 PM CDT Narrative [facility] - 12/11/2024 5:50 AM CDT [address] [place] [address] Test Date: 2024-12-10 Pat Name: KARSTEN RICE Department: 3 Room: EXAM 202 Gender: M [employer]person [employer]: : 1990 Requested By: ALLY SIMPSON Order Number: [id number] Reading MD: Anant Manzano Measurements Intervals [place] Rate: 102 P: 8 OH: 146 QRS: -15 QRSD: 104 T: 46 QT: 333 QTc: 434 Interpretive Statements SINUS TACHYCARDIA LEFT VENTRICULAR HYPERTROPHY AND ST-T CHANGE Procedure Note Anant Manzano MD - 12/11/[address] 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1990 Requested By: ALLY SIMPSON Order Number: [id number] Reading MD: Anant Manzano Measurements Intervals [place] Rate: 102 P: 8 OH: 146 QRS: -15 QRSD: 104 T: 46 QT: 333 QTc: 434 Interpretive Statements SINUS TACHYCARDIA LEFT VENTRICULAR HYPERTROPHY AND ST-T CHANGE us Ally Simpson DO ECG ORDERABLES Final Result [facility] * (ABNORMAL) COMPREHENSIVE METABOLIC PANEL (12/10/2024 4:07 PM CDT) SODIUM S/P/B 143 136 - 145 MMOL/L 12/10/2024 4:43 PM CDT [facility] POTASSIUM S/P/B 3.5 3.5 - 5.1 MMOL/L 12/10/2024 4:43 PM CDT [facility] CHLORIDE S/P/B 106 98 - 107 MMOL/L 12/10/2024 4:43 PM CDT [facility] CO2 23.8 21.0 - 32.0 MMOL/L 12/10/2024 4:43 PM CDT [facility] GLUCOSE 89 70 - 99 MG/DL 12/10/2024 4:43 PM [facility] Comment: FASTING GLUCOSE 100 TO 125 MG/DL IS CONSISTENT WITH IMPAIRED FASTING GLUCOSE. FASTING GLUCOSE >125 MG/DL IS CONSISTENT WITH DIABETES. RANDOM GLUCOSE >200 MG/DL WITH HYPERGLYCEMIC SYMPTOMS IS CONSISTENT WITH DIABETES. PER ADA GUIDELINES BUN 8 6 - 24 MG/DL 12/10/2024 4:43 PM T [facility] CREATININE S/P/B 1.48(H) 0.70 - 1.30 MG/DL 12/10/2024 4:43 PM T [facility] CALCIUM S/P/B 9.1 8.4 - 10.5 MG/DL 12/10/2024 4:43 PM [facility] BILIRUBIN TOTAL S/P/B 0.6 0.2 - 1.0 MG/DL 12/10/2024 4:43 PM [facility] Comment: THIS ASSAY IS NOT RECOMMENDED FOR PATIENTS UNDERGOING TREATMENT WITH ELTROMBOPAG DUE TO THE POTENTIAL FOR FALSELY ELEVATED RESULTS. ALKALINE PHOSPHATASE S/P/B 74 45 - 115 U/L 12/10/2024 4:43 PM [facility] AST 70(H) 15 - 37 U/L 12/10/2024 4:43 PM [facility] ALT 71(H) 16 - 63 U/L 12/10/2024 4:43 PM [facility] TOTAL PROTEIN S/P/B 7.6 6.4 - 8.2 G/DL 12/10/2024 4:43 PM [facility] ALBUMIN S/P/B 4.1 3.4 - 5.0 G/DL 12/10/2024 4:43 PM [facility] ANION GAP 13.2 5.0 - 15.0 MMOL/L 12/10/2024 4:43 PM [facility] OSMOLALITY (CALC) 294 MOSM/KG 025 4:43 PM [facility] Comment:REFERENCE RANGE NOT ESTABLISHED GFR ESTIMATE 64(L) >89 ML/MIN/1. 73 M2 12/10/2024 4:43 PM [facility] GFR NOTES GFR REFERENCE S: 12/10/2024 4:43 PM CDT [facility] Comment: THE ESTIMATED GFR IS CALCULATED USING THE 2020 CKD-EPI EQUATION. THE FOLLOWING CATEGORIES FOR GRADING RENAL FUNCTION ARE RECOMMENDED BY THE INTERNATIONAL SOCIETY OF NEPHROLOGY (KDIGO 2012 CLINICAL PRACTICE GUIDELINE). G1,NORMAL OR HIGH: >89 ml/min/1.73 m2 G2,MILDLY DECREASED: 60-89 ml/min/1.73 m2 G3A,MILDLY TO MODERATELY DECREASED: 45-59 ml/min/1.73 m2 G3B,MODERATELY TO SEVERELY DECREASED: 30-44 ml/min/1.73 m2 G4,SEVERELY DECREASED: 15-29 ml/min/1.73 m2 G5,KIDNEY FAILURE: <15 ml/min/1.73 m2 12/10/2024 4:07 PM CDT [facility] LABORATORY Final Result [facility] [place] [address], * (ABNORMAL) CBC W/DIFF AUTOMATED (12/10/2024 4:07 PM CDT) WBC 9.73 4.00 - 10.80 x10'3/uL 12/10/2024 4:18 PM CDT [facility] RBC 5.87 4.50 - 6.10 x10'6/uL 12/10/2024 4:18 PM CDT [facility] HGB 18.5(H) 13.0 - 18.0 G/DL 12/10/2024 4:18 PM CDT [facility] HCT 51.8 37.0 - 52.0 % 12/10/2024 4:18 PM CDT [facility] MCV 88.2 78.0 - 100.0 FL 12/10/2024 4:18 PM CDT [facility] MCH 31.5(H) 27.0 - 31.0 PG 12/10/2024 4:18 PM CDT [facility] MCHC 35.7 33.0 - 36.0 G/DL 12/10/2024 4:18 PM CDT [facility] RDW 14.9(H) 11.5 - 14.5 % 12/10/2024 4:18 PM CDT [facility] PLT 309 150 - 350 x10'3/uL 12/10/2024 4:18 PM CDT [facility] MPV 8.7 7.4 - 10.4 FL 12/10/2024 4:18 PM CDT [facility] CBC COMMENT NORMAL REFERENCE RANGE NOT ESTABLISHED FOR THE PROPORTIONAL LEUKOCYTE DIFFERENTIAL. 12/10/2024 4:18 PM CDT [facility] NEUTROPHILS % 69.6 % 12/10/2024 4:18 PM CDT [facility] LYMPHOCYTES % 21.7 % 12/10/2024 4:18 PM CDT [facility] MONOCYTES % 7.0 % 12/10/2024 4:18 PM CDT [facility] EOSINOPHILS % 0.6 % 12/10/2024 4:18 PM CDT [facility] BASOPHILS % 0.8 % 12/10/2024 4:18 PM CDT [facility] IMMATURE GRANS % 0.3 % 12/11/19 4:18 PM CDT [facility] NRBC % 0.0 % 12/10/2024 4:18 PM CDT [facility] ABS. NEUTROPHILS 6.77 1.60 - 8.30 x10'3/uL 12/10/2024 4:18 PM CDT [facility] ABS. LYMPHOCYTES 2.11 0.80 - 4.70 x10'3/uL 12/10/2024 4:18 PM CDT [facility] ABS. MONOCYTES 0.68 0.00 - 1.50 x10'3/uL 12/10/2024 4:18 PM CDT [facility] ABS. EOSINOPHILS 0.06 0.00 - 0.40 x10'3/uL 12/10/2024 4:18 PM CDT [facility] ABS. BASOPHILS 0.08 0.00 - 0.20 x10'3/uL 12/10/2024 4:18 PM CDT [facility] ABS. IMMATURE GRANULOCYTES 0.03 0.00 - 0.03 x10'3/uL 12/10/2024 4:18 PM CDT [facility] ABS. NUCLEATED RBC'S 0.00 0.00 - 0.01 x10'3/uL 12/10/2024 4:18 PM CDT [facility] 12/10/2024 4:07 PM CDT us Ally Simpson DO LABORATORY Final Result Performing Organization Address City/[facility]/ZIP Co de Phone Number [facility] [address] [place] [address], * THYROID STIM HORMONE, TSH (12/10/2024 4:07 PM CDT) TSH 2.418 0.358 - 3.740 uIU/ML 12/10/2024 4:43 PM CDT [facility] Comment: ASSAY PERFORMED BY CHEMILUMINESCENT IMMUNOASSAY METHODOLOGY USING SIEMENS DIMENSION REAGENT. PATIENT RESULTS DETERMINED BY ASSAYS FROM DIFFERENT MANUFACTURERS AND/OR BY DIFFERENT METHODS MAY NOT BE COMPARABLE. 12/10/2024 4:07 PM CDT us Ally Simpson DO LABORATORY Final Result Performing Organization Address City/[facility]/ZIP Co de Phone Number [facility] [address] [place] [address], * (ABNORMAL) SALICYLATE (12/10/2024 4:07 PM CDT) SALICYLATES 0.8(L) 2.8 - 20.0 MG/DL 12/10/2024 4:43 PM CDT [facility] 12/10/2024 4:07 PM CDT us Ally Simpson DO LABORATORY Final Result Performing Organization Address City/[facility]/ZIP Co de Phone Number [facility] [address] [place] [address], * (ABNORMAL) ACETAMINOPHEN (12/10/2024 4:07 PM CDT) Pathologist [facility] ACETAMINOPHEN S/P/B 0.0(L) 10.0 - 30.0 MCG/ML 12/10/2024 4:43 PM CDT [facility] 12/10/2024 4:07 PM CDT us Ally Simpson DO LABORATORY Final Result Performing Organization Address [facility]/[place] [address], * CORONAVIRUS (COVID-19) ANTIGEN (12/10/2024 4:00 PM CDT) [facility] CORONAVIRUS ANTIGEN [place] NEGATIVE NEGATIVE 12/10/2024 4:36 PM CDT [facility] Comment: NEGATIVE RESULTS DO NOT RULE OUT SARS-COV-2 INFECTION AND SHOULD NOT BE USED THE SOLE BASIS FOR TREATMENT OR PATIENT MANAGEMENT DECISIONS, INCLUDING INFECTION CONTROL DECISIONS. NEGATIVE RESULTS SHOULD BE CONSIDERED IN THE CONTEXT OF A PATIENT'S RECENT EXPOSURES, HISTORY AND THE PRESENCE OF CLINICAL SIGNS AND SYMPTOMS CONSISTENT WITH COVID 19. THIS TEST HAS BEEN AUTHORIZED BY THE FDA UNDER AN EMERGENCY USE AUTHORIZATION (EUA) FOR USE BY AUTHORIZED LABORATORIES. SPECIMEN TYPE NASAL 12/10/2024 4:08 PM CDT [facility] NASAL NASAL STRUCTURE / Unknown 12/10/2024 4:00 PM CDT us Ally Simpson DO MICROBIOLOGY - GENERAL ORDERAB LES Final Result Performing Organization Address City/[facility]/ZIP Co de Phone Number [facility] [address] [place] [id number], * (ABNORMAL) DRUG SCREEN RAPID (12/10/2024 4:00 PM CDT) [facility] Signature CANNABINOIDS SCREEN (U) NEGATIVE NEGATIVE 12/10/2024 4:30 PM CDT [facility] PHENCYCLIDINE PCP (U) NEGATIVE NEGATIVE 12/10/2024 4:30 PM CDT [facility] COCAINE METABOLITES (U) NEGATIVE NEGATIVE 12/10/2024 4:30 PM CDT [facility] METHAMPHETAMINE SCREEN (U) NEGATIVE NEGATIVE 12/10/2024 4:30 PM CDT [facility] OPIATE SCREEN (U) NEGATIVE NEGATIVE 025 4:30 PM CDT [facility] AMPHETAMINE SCREEN (U) POSITIVE(A) NEGATIVE 12/10/2024 4:30 PM CDT [facility] BENZODIAZEPINES SCREEN (U) NEGATIVE NEGATIVE 12/10/2024 4:30 PM CDT [facility] TRICYCLIC ANTIDEPRESSANT SCREEN (U) NEGATIVE NEGATIVE 12/10/2024 4:30 PM CDT [facility] METHADONE (U) NEGATIVE NEGATIVE 12/10/2024 4:30 PM CDT [facility] BARBITURATES SCREEN (U) NEGATIVE NEGATIVE 12/10/2024 4:30 PM CDT [facility] OXYCODONE SCREEN (U) NEGATIVE NEGATIVE 12/10/2024 4:30 PM CDT [facility] URINE TOX COMMENT THIS TEST METHODOLOGY IS DESIGNED AND OFFERED A RAPID TURNAROUND, QUALITATIVE SCREENING PROCEDURE TO AID IN THE IMMEDIATE MEDICAL ASSESSMENT OF PATIENTS SUSPECTED OF SUBSTANCE ABUSE. 12/10/2024 4:09 PM CDT [facility] Comment: CLINICAL CONSIDERATION AND PROFESSIONAL JUDGMENT MUST BE APPLIED TO ANY DRUG OF ABUSE TEST RESULT, BOTH POSITIVE AND NEGATIVE. CONFIRMATORY QUANTITATIVE RESULTS ARE AVAILABLE THROUGH OUR REFERENCE LABORATORY. URINE SPECIMEN / Unknown 12/10/2024 4:00 PM CDT us Ally Simpson DO URINE ORDERABLES Final Result [facility] [address] [place] [address], * (ABNORMAL) URINALYSIS (12/10/2024 4:00 PM CDT) COLOR (U) YELLOW 12/10/2024 4:32 PM CDT [facility] TRANSPARENCY CLEAR 12/10/2024 4:32 PM CDT [facility] SPECIFIC GRAVITY (U) 1.005 1.000 - 1.025 12/10/2024 4:32 PM CDT [facility] Comment:LESS THAN OR EQUAL T O U PH 6.0 5.0 - 8.0 12/10/2024 4:32 PM CDT [facility] LEUKOCYTES (U) NEGATIVE NEGATIVE 12/10/2024 4:32 PM CDT [facility] NITRITES NEGATIVE NEGATIVE 12/10/2024 4:32 PM CDT [facility] PROTEIN RANDOM (U) TRACE(A) NEGATIVE 12/10/2024 4:32 PM CDT [facility] GLUCOSE (U) NEGATIVE NEGATIVE 12/10/2024 4:32 PM CDT [facility] KETONES MG/DL (U) NEGATIVE NEGATIVE 12/10/2024 4:32 PM CDT [facility] UROBILINOGEN 0.2 <1.0 EU/DL 12/10/2024 4:32 PM CDT [facility] BILIRUBIN (U) NEGATIVE NEGATIVE 12/10/2024 4:32 PM CDT [facility] BLOOD (U) NEGATIVE NEGATIVE 12/10/2024 4:32 PM CDT [facility] WBC/HPF 5-10(A) 0 - 5 /HPF 12/10/2024 4:32 PM CDT [facility] RBC/HPF 0-5 0 - 5 /HPF 12/10/2024 4:32 PM CDT [facility] EPI/LPF RARE /LPF 12/10/2024 4:32 PM CDT [facility] BACTERIA (U) 1+ /HPF 12/10/2024 4:32 PM CDT [facility] OTHER CASTS (U) HYALINE /LPF 4:32 PM CDT [facility] Comment:0-5 URINE SPECIMEN OBTAINED BY CLEAN CATCH PROCEDURE / Unknown 12/10/2024 4:00 PM CDT us Ally Simpson DO URINE ORDERABLES Final Result [facility] [address] [place] [address], from Last 3 Months Insurance [facility] Care Teams Rotor Assembler Relationship Specialty Start Date End Date None, Provider, PCP - General UNKNOWN PHYSICIAN SPECIALTY 12/10/24
--- OUTSIDE RECORDS SUMMARY | 2025-02-03 17:51 | XMS_ITS | Clinical Summary ---
Author Organization [facility] Address [address] Attn: [place] [address] Care Team Providers Care Wood Flooring Specialist Name Role Phone Mary Farr MD Primary Care Provider [phone] Allergies No known active allergies Medications omeprazole magnesium (PriLOSEC OTC) 20 mg Tablet, Delayed Release (E.C.)Indicatio ns:Gastroesopha geal reflux disease, unspecified whether esophagitis present Take 1 Tablet (20 mg) by mouth daily. 90 Tablet Active testosterone cypionate (DEPO-TESTOSTER ONE) 200 mg/mL OilIndications: Low testosterone in male Inject 1 mL (200 mg) by intramuscular injection every 28 days. Per testosterone clinic Active sertraline (Zoloft) 100 mg tabletIndicatio ns:Mixed anxiety and depressive disorder Take 1 Tablet (100 mg) by mouth daily. 30 Tablet 025 Active OTHERIndication s:weight loss Take 1 Capsule by mouth daily. Bupropion 65 mg Phentermine 37.5 mg Topiramate 15 mg Naltrexone 8 mg Methylcobalamin 1 mg MR Capsules 025 2024 Discontinued sertraline (Zoloft) 50 mg tabletIndicatio ns:Mixed anxiety and depressive disorder Take 1 Tablet (50 mg) by mouth daily in the morning. 30 Tablet 025 2024 Discontinued Active Problems Problem Noted Date Diagnosed Date Tobacco user 02/03/2025 Witnessed episode of apnea 10/28/2024 Other fatigue 10/28/2024 Gastroesophageal reflux disease 10/28/2024 Alcohol abuse, daily use 10/28/2024 Mixed anxiety and depressive disorder 10/28/2024 Encounters Date Type Department Care Team Description 02/03/2025 9:30 AM GOLF INSTRUCTOR Office Visit [facility] [place] [address] [place] [address] Nicole Brooke ANP Alcohol abuse, daily use (Primary Dx); Mixed anxiety and depressive disorder; History of suicidal behavior 01/03/2025 3:50 PM CDT Procedure visit [facility] [place] [address] [place] [address] Issue of repeat prescription (Primary Dx) 01/03/2025 Refill [facility] [place] [address] [place] [address] Mary Farr MD Mixed anxiety and depressive disorder 11/28/2024 Results Follow-Up [facility] [place] [address] [facility] [place] [address] Nicole Brooke ANP VITAMIN B12 LEVEL, VITAMIN D 25 HYDROXY, COMPREHENSIVE METABOLIC PANEL, Additional followed-up results: 5 11/26/2024 Orders Only [facility] [place] [address] [place] [address] Nicole Brooke ANP 11/25/2024 8:00 AM CDT Office Visit [place] [address] [place] [address] Nicole Brooke ANP Mixed anxiety and depressive disorder (Primary Dx); Alcohol abuse, daily use; Screening for condition; Low testosterone in male; Other fatigue from Last 3 Months Immunizations Immunization Administration Dates Next Due (M-M-R II/PRIORIX)(12 MO UP) MEASLES, MUMPS AND RUBELLA VIRUS VACCINE, 0.5 ML IM/SUBCUT 10/04/1996,05/15/1992 Dt Dtp Dtap Vaccine 10/04/1996, 4,11/29/1991,1991,07/12/1991 HIB, Unspecified Formulation 05/15/1992, 11/29/1991,09/27/1991,1991 Hepatitis B Vaccine 03/14/1997,01/20/1997,1996 IPV/OPV 10/04/1996, 4,09/27/1991,1991 Family History Medical History Relation Name Comments No Known Problems Brother 1 No Known Problems Brother 2 No Known Problems Brother 3 Anemia Daughter FOLDER STITCHER OPERATOR-- amado b lackfan anemia Alcohol abuse Father No Known Problems Maternal Grandfather Breast Cancer Maternal Grandmother kym Alcohol abuse Mother No Known Problems Paternal Grandfather No Known Problems Paternal Grandmother No Known Problems Sister 1 No Known Problems Sister 2 No Known Problems Son Relation Name Status Comments Brother 1 Alive Brother 2 Alive Brother 3 Alive Daughter Alive Father Alive Maternal Grandfather Maternal Grandmother kym Alive Mother Alive Paternal Grandfather Paternal Grandmother Sister 1 Alive Sister 2 Alive Son Alive Social History Tobacco Use Types Packs/Day Years Used Date Smoking Tobacco: Former Cigarettes 0.3 10 Tobacco Cessation:Counseling Given: Not Answered Alcohol Use Standard Drinks/Week Comments Yes 25 (1 standard drink = 0.6 oz pu re alcohol) Sex and Gender Information Value Date Recorded Sex Assigned at Not on file Legal Sex Male 12:22 PM GOLF INSTRUCTOR Gender Identity Not on file Sexual Orientation Not on file Last Filed Vital Signs Vital Sign Reading Time Taken Comments Blood Pressure 134/82 02/03/2025 8:59 AM GOLF INSTRUCTOR Pulse 105 02/03/2025 8:59 AM GOLF INSTRUCTOR Temperature 36.6 C (97.8 F) 02/03/2025 8:59 AM GOLF INSTRUCTOR Respiratory Rate 18 02/03/2025 8:59 AM GOLF INSTRUCTOR Oxygen Saturation 97% 02/03/2025 8:59 AM GOLF INSTRUCTOR Inhaled Oxygen Concentration - - Weight 107.5 kg (237 lb) 02/03/2025 8:59 AM GOLF INSTRUCTOR Height 175.3 cm (5' 9) 02/03/2025 8:59 AM GOLF INSTRUCTOR Body Mass Index 35 02/03/2025 8:59 AM GOLF INSTRUCTOR Plan of Treatment Upcoming Encounters Date Type Department Care Team (Late st Contact Info) Description 03/03/2025 9:00 AM GOLF INSTRUCTOR Office Visit [facility] [employer] [address] [place] [phone] Nicole Brooke, [facility] [address] [place] [address] Health Maintenance Due Date Last Done Comments DTAP/TDAP/TD VACCINES (6 - Tdap) 2001 10/04/1996, 05/28/1993, 05/28/1993, Additional history exists HPV VACCINES (1 - 3-dose SCD M series) 2017 Preventative Visit- Commercial 03/13/2024 07/13/2023 INFLUENZA VACCINE (#1) 2024 HEPATITIS B VACCINES Completed 03/14/1997, 03/14/1997, 01/20/1997, Additional history exists Procedures Procedure Name Priority Date/Time Associated Diagnosis Comments LIPID PANEL Routine 11/25/2024 8:30 AM CDT Other fatigue HEMOGLOBIN A1C Routine 11/25/2024 8:30 AM CDT Other fatigue TSH REFLEXIVE Routine 11/25/2024 8:30 AM CDT Other fatigue URINALYSIS W/REFLEX MICROSCOPIC Routine 11/25/2024 8:30 AM CDT Other fatigue CBC WITH DIFFERENTIAL Routine 11/25/2024 8:30 AM CDT Other fatigue COMPREHENSIVE METABOLIC PANEL Routine 11/25/2024 8:30 AM CDT Other fatigue VITAMIN D 25 HYDROXY Routine 11/25/2024 8:30 AM CDT Other fatigue VITAMIN B12 LEVEL Routine 11/25/2024 8:3 0 AM CDT Other fatigue from Last 3 Months Results * TSH REFLEXIVE (11/25/2024 8:30 AM CDT) TSH 1.61 0.40 - 4.50 mIU/L [facility] Comment: Test Performed at: [employer] [address] [place] [address] Vinay Mercer Blood 11/25/2024 8:30 AM CDT 11/26/2024 12:23 AM CDT us Nicole Willingham Edwardo [facility] CHEMISTRY ORDERABLES Final R esult [facility] [phone] [facility] [address] [place] [address] * (ABNORMAL) CBC WITH DIFFERENTIAL (11/25/2024 8:30 AM CDT) WBC 8.4 3.8 - 10.8 Thousand/ uL [facility] RBC 5.42 4.20 - 5.80 Million/u L [facility] HEMOGLOBIN 16.8 13.2 - 17.1 g/dL [facility] HEMATOCRIT 52.2(H) 38.5 - 50.0 % [facility] MCV 96.3 80.0 - 100.0 fL [facility] MCH 31.0 27.0 - 33.0 pg [facility] MCHC 32.2 32.0 - 36.0 g/dL [facility] Comment: For adults, a slight decrease in the calculated MCHC value (in the range of 30 to 32 g/dL) is most likely not clinically significant; however, it should be interpreted with caution in correlation with other red cell parameters and the patient's clinical condition. RDW 13.7 11.0 - 15.0 % [facility] PLATELETS 286 140 - 400 Thousand/ uL [facility] MPV 9.5 7.5 - 12.5 fL [facility] NEUTROPHIL ABSOLUTE 5,880 1,500 - 7,800 cells/uL [facility] LYMPHOCYTE ABSOLUTE 1,453 850 - 3,900 cells/uL [facility] MONOCYTE ABSOLUTE 689 200 - 950 cells/uL [facility] EOSINOPHIL ABSOLUTE 319 15 - 500 cells/uL [facility] BASOPHILS ABSOLUTE 59 0 - 200 cells/uL [facility] NEUTROPHIL 70 % [facility] LYMPHOCYTES 17.3 % [facility] MONOCYTE 8.2 % [facility] EOSINOPHILS 3.8 % [facility] BASOPHILS 0.7 % [facility] Comment: Test Performed at: [facility] [address] [place] [address] Vniay Mercer Blood 11/25/2024 8:30 AM CDT 11/26/2024 12:23 AM CDT Nicole Brooke ANP HEMATOLOGY ORDERABLES Final Result [facility] [phone] [facility] [address] [place] [address] * VITAMIN D 25 HYDROXY (11/25/2024 8:30 AM CDT) VITAMIN D, 25 OH, TOTAL 36 30 - 100 ng/mL [facility] Comment: Vitamin D Status 25-OH Vitamin D: Deficiency: <20 ng/mL Insufficiency: 20 - 29 ng/mL Optimal: > or = 30 ng/mL For 25-OH Vitamin D testing on patients on D2-supplementation and patients for whom quantitation of D2 and D3 fractions is required, the QuestAssure[facility](TM) 25-OH VIT D, (D2,D3), LC/MS/MS is recommended: order code 75715 (patients >2yrs). See Note 1 Note 1 For additional information, please refer to http://education.TigerTrade.LifeLock/faq/QHA117 (This link is being provided for informational/ educational purposes only.) Test Performed at: [facility] [address] [place] [address] Vinay Mercer MD Blood 11/25/2024 8:30 AM CDT 11/26/2024 12:23 AM CDT Nicole Brooke ANP CHEMISTRY ORDERABLES Final R esult [facility] [phone] [facility] [address] [place] [address] * (ABNORMAL) URINALYSIS WITH REFLEX MICROSCOPIC (11/25/2024 8:30 AM CDT) COLOR UA DARK YELLOW YELLOW [facility] CLARITY UA CLEAR CLEAR [facility] SPECIFIC GRAVITY UA 1.022 1.001 - 1.035 [facility] PH UA 7.0 5.0 - 8.0 [facility] GLUCOSE UA NEGATIVE NEGATIVE [facility] BILIRUBIN UA NEGATIVE NEGATIVE [facility] KETONES UA TRACE(A) NEGATIVE [facility] BLOOD UA NEGATIVE NEGATIVE [facility] PROTEIN UA NEGATIVE NEGATIVE [facility] NITRITE UA NEGATIVE NEGATIVE [facility] LEUKOCYTE ESTERASE UA NEGATIVE NEGATIVE [facility] Comment: Test Performed at: [place] [address] [place] [phone] Vinay [facility] Urine URINE SPECIMEN OBTAINED BY CLEAN CATCH PROCEDURE / Unknown 11/25/2024 8:30 AM CDT 11/25/2024 11:36 PM CDT us Nicole Brooke ANP URINE ORDERABLES Final Resul t [facility], [place]) Organization Address City/State/ZIP Code Phone Number [facility] [phone] [place] [address] [place] [phone] * HEMOGLOBIN A1C (11/25/2024 8:30 AM CDT) HEMOGLOBIN A1C 5.3 <5.7 % of total Hgb [facility] Comment: For the purpose of screening for the presence of diabetes: <5.7% Consistent with the absence of diabetes 5.7-6.4% Consistent with increased risk for diabetes (prediabetes) > or =6.5% Consistent with diabetes This assay result is consistent with a decreased risk of diabetes. Currently, no consensus exists regarding use of hemoglobin A1c for diagnosis of diabetes in children. According to [place] Diabetes Association (ADA) guidelines, hemoglobin A1c <7.0% represents optimal control in non- diabetic patients. Different metrics may apply to specific patient populations. Standards of Medical Care in Diabetes(ADA). ESTIMATED AVERAGE GLUCOSE (MG/DL) 105 mg/dL [facility] ESTIMATED AVERAGE GLUCOSE (MMOL/L) 5.8 mmol/L [facility] Comment: Test Performed at: [facility] [address] [place] [address] Vinay Mercer Blood 11/25/2024 8:30 AM CDT 11/26/2024 12:23 AM CDT Nicole rBooke [facility] CHEMISTRY ORDERABLES Final R esult Performing Organization Address City/State/ZIP [facility] Phone Number [facility] [phone] [facility] [address] [place] [phone] * VITAMIN B12 LEVEL (11/25/2024 8:30 AM CDT) Pathologist [facility] VITAMIN B12 810 200 - 1100 pg/mL [facility] Comment: Test Performed at: [facility] [address] [place] [address] [facility] MD Blood 11/25/2024 8:30 AM CDT 11/26/2024 12:23 AM CDT Nicole Brooke [facility] CHEMISTRY ORDERABLES Final R esult Performing Organization Address City/State/ZIP [facility] Phone Number [facility] [phone] [facility] [address] [place] [address] * (ABNORMAL) LIPID PANEL (11/25/2024 8:30 AM CDT) CHOLESTEROL 173 <200 mg/dL [facility] HDL 45 > OR = 40 mg/dL [facility] TRIGLYCERIDE 128 <150 mg/dL [facility] LDL CALCULATED 106(H) mg/dL (calc) [facility] Comment: Reference range: <100 Desirable range <100 mg/dL for primary prevention; <70 mg/dL for patients with CHD or diabetic patients with > or = 2 CHD risk factors. LDL-C is now calculated using the Riley-Bhatti calculation, which is a validated novel method providing better accuracy than the Friedewald equation in the estimation of LDL-C. Riley SS et al. ALLY. 2013;310(19): 4041-2493 (http://education.Ayrstone Productivity/faq/XEG233) CHOL/HDL RATIO 3.8 <5.0 (calc) [employer] [facility] NON-HDL CHOLESTEROL 128 <130 mg/dL (calc) [facility] Comment: For patients with diabetes plus 1 major ASCVD risk factor, treating to a non-HDL-C goal of <100 mg/dL (LDL-C of <70 mg/dL) is considered a therapeutic option. Test Performed at: [facility] [place] [address] [place] [phone] Vinay Mercer Blood 11/25/2024 8:30 AM CDT 11/26/2024 12:23 AM CDT Nicole Brooke [facility] CHEMISTRY ORDERABLES Final R esult [facility] [phone] [place] [address] [address] [place] [phone] * COMPREHENSIVE METABOLIC PANEL (11/25/2024 8:30 AM CDT) GLUCOSE 91 65 - 99 mg/dL [facility] Comment: Fasting reference interval BUN 11 7 - 25 mg/dL [facility] CREATININE 1.12 0.60 - 1.26 mg/dL [employer] [facility] GFR 89 > OR = 60 mL/min/1. 73m2 [employer] [facility] BUN/CREAT RATIO SEE NOTE: 6 - 22 (calc) [facility] Comment: Not Reported: BUN and Creatinine are within reference range. SODIUM 139 135 - 146 mmol/L [facility] POTASSIUM 4.0 3.5 - 5.3 mmol/L [employer] [facility] CHLORIDE 104 98 - 110 mmol/L [employer] [facility] CO2 27 20 - 32 mmol/L [facility] CALCIUM 9.2 8.6 - 10.3 mg/dL [employer] [facility] TOTAL PROTEIN 6.8 6.1 - 8.1 g/dL [facility] ALBUMIN 4.5 3.6 - 5.1 g/dL [facility] GLOBULIN 2.3 1.9 - 3.7 g/dL (calc) [facility] ALBUMIN/GLOBULIN RATIO 2.0 1.0 - 2.5 (calc) [facility] BILIRUBIN TOTAL 0.6 0.2 - 1.2 mg/dL [facility] ALKALINE PHOSPHATASE 59 36 - 130 U/L [facility] AST 30 10 - 40 U/L [facility] ALT 25 9 - 46 U/L [facility] Comment: Test Performed at: [place] [address] [place] [phone] Vinay Mercer Blood 11/25/2024 8:30 AM CDT 11/26/2024 12:23 AM CDT us Nicole Brooke ANP CHEMISTRY ORDERABLES Final R esult [facility] [phone] [place] [address] [address] [place] [phone] from Last 3 Months Insurance [employer] Care Teams Wood Flooring Specialist Relationship Specialty Start Date End Date Mary Farr MD [address] [place] [address] PCP - General Internal Medicine 10/28/24
--- OUTSIDE RECORDS SUMMARY | 2025-02-03 18:26 | XMS_ITS | Clinical Summary ---
Author Organization [facility] Address [address] Attn: [place] [address] Care Team Providers Care Flap Presser Name Role Phone Mary Farr MD Primary Care Provider [phone] Allergies No known active allergies Medications omeprazole [...] Department Care Team Description 02/03/2025 9:30 AM FURNACE INSTALLER HELPER Office Visit [facility] at [place] [address] [place] [address] Nicole Brooke ANP Alcohol abuse, daily use (Primary Dx); Mixed anxiety and depressive disorder; History of suicidal behavior 01/03/2025 3:50 PM CDT Procedure visit [facility] at [place] [address] [place] [address] Issue of repeat prescription (Primary Dx) 01/03/2025 Refill [facility] at [place] [address] [place] [address] Mary Farr MD Mixed anxiety and depressive disorder 11/28/2024 Results Follow-Up [facility] at [place] [address] [address] Nicole Brooke ANP VITAMIN B12 LEVEL, VITAMIN D 25 HYDROXY, COMPREHENSIVE METABOLIC PANEL, Additional followed-up results: 5 11/26/2024 Orders Only [facility] at [place] [address] [place] [address] Nicole Brooke ANP 11/25/2024 8:00 AM CDT Office Visit [place] [address] [place] [address] Nicole Brooke ANP Mixed anxiety and depressive [...] No Known Problems Brother 3 Anemia Daughter TECHNICAL CONSULTANT-- amado b lackfan anemia Alcohol abuse Father [...] on file Legal Sex Male 12:22 PM FURNACE INSTALLER HELPER Gender Identity Not on file Sexual Orientation Not on file Last Filed Vital Signs Vital Sign Reading Time Taken Comments Blood Pressure 134/82 02/03/2025 8:59 AM FURNACE INSTALLER HELPER Pulse 105 02/03/2025 8:59 AM FURNACE INSTALLER HELPER Temperature 36.6 C (97.8 F) 02/03/2025 8:59 AM FURNACE INSTALLER HELPER Respiratory Rate 18 02/03/2025 8:59 AM FURNACE INSTALLER HELPER Oxygen Saturation 97% 02/03/2025 8:59 AM FURNACE INSTALLER HELPER Inhaled Oxygen Concentration - - Weight 107.5 kg (237 lb) 02/03/2025 8:59 AM FURNACE INSTALLER HELPER Height 175.3 cm (5' 9) 02/03/2025 8:59 AM FURNACE INSTALLER HELPER Body Mass Index 35 02/03/2025 8:59 AM FURNACE INSTALLER HELPER Plan of Treatment Upcoming Encounters Date Type Department Care Team (Late st Contact Info) Description 03/03/2025 9:00 AM FURNACE INSTALLER HELPER Office Visit [facility] at [employer] [address] [place] [id number] Nicole Brooke, [facility] [address] [place] [address] Health Maintenance Due Date Last Done [...] CDT) TSH 1.61 0.40 - 4.50 mIU/L [email or web address] Comment: Test Performed at: [facility] [address] [place] [address] Vinay Mercer Blood 11/25/2024 8:30 AM CDT 11/26/2024 12:23 AM CDT us Nicole Willingham Edwardo [facility] CHEMISTRY ORDERABLES Final R esult [facility] [phone] [email or web address] [address] [place] [address] * (ABNORMAL) CBC WITH DIFFERENTIAL (11/25/2024 8:30 AM CDT) WBC 8.4 3.8 - 10.8 Thousand/ uL [facility] RBC 5.42 4.20 - 5.80 Million/u L [facility] [employer]in HEMOGLOBIN 16.8 13.2 - 17.1 [...] Diagnostics-S t Sorin Comment: Test Performed at: [email or web address] [address] [place] [address] Vinay Mercer Blood 11/25/2024 8:30 AM CDT 11/26/2024 12:23 AM CDT Nicole Brooke ANP HEMATOLOGY ORDERABLES Final Result [facility] [phone] [email or web address] [place] [address] [place] [address] * VITAMIN D 25 HYDROXY (11/25/2024 8:30 AM CDT) VITAMIN D, 25 OH, TOTAL 36 30 - 100 ng/mL [email or web address] Comment: Vitamin D Status 25-OH Vitamin D: Deficiency: <20 ng/mL Insufficiency: 20 - 29 ng/mL Optimal: > or = 30 ng/mL For 25-OH Vitamin D testing on patients on D2-supplementation and patients for whom quantitation of D2 and D3 fractions is required, the QuestAssureD(TM) 25-OH VIT D, (D2,D3), LC/MS/MS is recommended: order code 28913 (patients >2yrs). See Note 1 Note 1 For additional information, please refer to http://education.Momail.Endo [employer]/faq/XWZ080 (This link is being provided for informational/ educational purposes only.) Test Performed at: [email or web address] [address] [place] [address] Vinay Mercer MD Blood 11/25/2024 8:30 AM CDT 11/26/2024 12:23 AM CDT Nicole Brooke ANP CHEMISTRY ORDERABLES Final R esult [facility] [phone] [facility] [address] [place] [address] * (ABNORMAL) URINALYSIS WITH REFLEX MICROSCOPIC (11/25/2024 8:30 AM CDT) COLOR UA DARK YELLOW YELLOW [facility] CLARITY UA CLEAR CLEAR [email or web address] SPECIFIC GRAVITY UA 1.022 1.001 - 1.035 [facility] PH UA 7.0 5.0 - 8.0 [email or web address] GLUCOSE UA NEGATIVE NEGATIVE [email or web address] BILIRUBIN UA NEGATIVE NEGATIVE [email or web address] KETONES UA TRACE(A) NEGATIVE [facility] BLOOD UA NEGATIVE NEGATIVE [email or web address] PROTEIN UA NEGATIVE NEGATIVE [email or web address] NITRITE UA NEGATIVE NEGATIVE [email or web address] LEUKOCYTE ESTERASE UA NEGATIVE NEGATIVE [email or web address] Comment: Test Performed at: [place] [address] [address] Vinay [facility] Urine URINE SPECIMEN OBTAINED BY CLEAN CATCH PROCEDURE / Unknown 11/25/2024 8:30 AM CDT 11/25/2024 11:36 PM CDT us Nicole Brooke ANP URINE ORDERABLES Final Resul t [facility] Organization Address City/State/ZIP Code Phone Number [facility] [phone] [place] [address] [place] [address] * HEMOGLOBIN A1C (11/25/2024 8:30 AM CDT) HEMOGLOBIN A1C 5.3 <5.7 % of total Hgb [facility] Comment: For the purpose of screening for the presence of diabetes: <5.7% Consistent with the absence of diabetes 5.7-6.4% Consistent with increased risk for diabetes (prediabetes) > or =6.5% Consistent with diabetes This assay result is consistent with a decreased risk of diabetes. Currently, no consensus exists regarding use of hemoglobin A1c for diagnosis of diabetes in children. According to [place] Diabetes Association (ADA) guidelines, hemoglobin A1c <7.0% represents optimal control in non- diabetic patients. Different metrics may apply to specific patient populations. Standards of Medical Care in Diabetes(ADA). ESTIMATED AVERAGE GLUCOSE (MG/DL) 105 mg/dL [facility] ESTIMATED AVERAGE GLUCOSE (MMOL/L) 5.8 mmol/L [facility] Comment: Test Performed at: [email or web address] [address] [place] [address] Vinay Mercer Blood 11/25/2024 8:30 AM CDT 11/26/2024 12:23 AM CDT Nicole Brooke [facility] CHEMISTRY ORDERABLES Final R esult Performing Organization Address City/State/ZIP [facility] Phone Number [facility] [phone] [facility] [address] [place] [phone] * VITAMIN B12 LEVEL (11/25/2024 8:30 AM CDT) Pathologist [facility] VITAMIN B12 810 200 - 1100 pg/mL [facility] nexa Comment: Test Performed at: [email or web address] [address] [place] [address] [facility] MD Blood 11/25/2024 8:30 AM CDT 11/26/2024 12:23 AM CDT Nicole Brooke [facility] CHEMISTRY ORDERABLES Final R esult Performing Organization Address City/State/ZIP [facility] Phone Number [facility] [phone] [facility] [address] [place] [address] * (ABNORMAL) LIPID PANEL (11/25/2024 8:30 AM CDT) CHOLESTEROL 173 <200 mg/dL [facility] HDL 45 > OR = 40 mg/dL [facility] TRIGLYCERIDE 128 <150 mg/dL [facility] LDL CALCULATED 106(H) mg/dL (calc) [facility] Comment: Reference range: <100 Desirable range <100 mg/dL for primary prevention; <70 mg/dL for patients with CHD or diabetic patients with > or = 2 CHD risk factors. LDL-C is now calculated using the Riley-Bhatti calculation, which is a validated novel method providing better accuracy than the Friedewald equation in the estimation of LDL-C. Riley SS et al. ALLY. 2013;310(19): 5523-8976 (http://education.Full Color Games/faq/CQR490) CHOL/HDL RATIO 3.8 <5.0 (calc) [facility] NON-HDL CHOLESTEROL 128 <130 mg/dL (calc) [email or web address] Comment: For patients with diabetes plus 1 major ASCVD risk factor, treating to a non-HDL-C goal of <100 mg/dL (LDL-C of <70 mg/dL) is considered a therapeutic option. Test Performed at: [email or web address] [address] [place] [address] Vinay Mercer Blood 11/25/2024 8:30 AM CDT 11/26/2024 12:23 AM CDT Nicole Brooke [facility] CHEMISTRY ORDERABLES Final R esult [facility] [phone] [place] [address] [place] [phone] * COMPREHENSIVE METABOLIC PANEL (11/25/2024 8:30 AM CDT) GLUCOSE 91 65 - 99 mg/dL [facility] an[facility] Rowell Comment: Fasting reference interval BUN 11 7 - 25 mg/dL [email or web address] an[facility] CREATININE 1.12 0.60 - 1.26 mg/dL [facility] GFR 89 > OR = 60 mL/min/1. 73m2 [facility] BUN/CREAT RATIO SEE NOTE: 6 - 22 (calc) [email or web address] anh Rowell Comment: Not Reported: BUN and Creatinine are within reference range. SODIUM 139 135 - 146 mmol/L [email or web address] POTASSIUM 4.0 3.5 - 5.3 mmol/L [facility] CHLORIDE 104 98 - 110 mmol/L [facility] CO2 27 20 - 32 mmol/L [email or web address] an[facility] CALCIUM 9.2 8.6 - 10.3 mg/dL [facility] TOTAL PROTEIN 6.8 6.1 - 8.1 g/dL [facility] ALBUMIN 4.5 3.6 - 5.1 g/dL [facility] GLOBULIN 2.3 1.9 - 3.7 g/dL (calc) [facility]to-[facility] anh Rowell ALBUMIN/GLOBULIN RATIO 2.0 1.0 - 2.5 (calc) [facility] Luis AlbertoS anh Rowell BILIRUBIN TOTAL 0.6 0.2 - 1.2 mg/dL [facility] ALKALINE PHOSPHATASE 59 36 - 130 U/L [facility] AST 30 10 - 40 U/L [facility] ALT 25 9 - 46 U/L [facility] Comment: Test Performed at: [place] [address] [place] [address] Vinay Mercer Blood 11/25/2024 8:30 AM CDT 11/26/2024 12:23 AM CDT us Nicole Brooke ANP CHEMISTRY ORDERABLES Final R esult [facility] [phone] [place] [address] [place] [phone] from Last 3 Months Insurance [employer] OPEN ACCESS Care Teams Flap Presser Relationship Specialty Start Date End Date Mary Farr MD [address] [place] [address] PCP - General Internal Medicine 10/28/24
--- OUTSIDE RECORDS SUMMARY | 2025-02-03 18:26 | XMS_ITS | Clinical Summary ---
Author Organization [facility] Address [address] [place] [address] Care Team Providers Care Patient Access Registrar Name Role Phone None, Provider MD Primary Care Provider Unavaila ble Allergies No known active allergies Medications sertraline (ZOLOFT) 50 MG tablet Take 1 tablet (50 mg total) by mouth daily. Active omeprazole (PRILOSEC) 2 mg/mL Suspension oral suspension Take by mouth daily. Active Encounters Date Type Department Care Team Description 12/10/2024 3:40 PM CDT - 12/11/2024 3:14 AM CDT Emergency [facility] [address] [place] [address] Ally Simpson DO Behavioral Problem Discharge Disposition: [...] topic Meningococcal Vaccine Aged Out No anirudh sirman eligible based on patient's age to complete [...] 0.068(H) <0.003 G/DL 12/11/2024 12:26 AM CDT [facility] 12/11/2024 12:1 1 AM CDT us Ally Simpson DO LABORATORY Final Result [facility] [address] [place] [address], * ECG 12 lead (12/10/2024 4:09 PM CDT) 12/10/2024 4:09 PM CDT Narrative [facility] - 12/11/2024 5:50 AM CDT [address] [place] [address] Test Date: 2024-12-10 Pat Name: KARSTEN RICE Department: 3 Room: EXAM 202 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1990 Requested By: ALLY SIMPSON Order Number: [id number] Reading MD: Anant Manzano Measurements Intervals Benld Rate: 102 P: 8 OK: 146 QRS: -15 QRSD: 104 T: 46 QT: 333 QTc: 434 Interpretive Statements SINUS TACHYCARDIA LEFT VENTRICULAR HYPERTROPHY AND ST-T CHANGE us Ally Simpson DO ECG ORDERABLES Final Result [facility] * (ABNORMAL) COMPREHENSIVE METABOLIC PANEL (12/10/2024 4:07 PM CDT) SODIUM S/P/B 143 136 - 145 MMOL/L 12/10/2024 4:43 PM CDT [facility] POTASSIUM S/P/B 3.5 3.5 - 5.1 MMOL/L 12/10/2024 4:43 PM CDT [facility] CHLORIDE S/P/B 106 98 - 107 MMOL/L 12/10/2024 4:43 PM CDT [facility] CO2 23.8 21.0 - 32.0 MMOL/L 12/10/2024 4:43 PM CDT [facility] GLUCOSE 89 70 - 99 MG/DL 12/10/2024 4:43 PM [facility] Comment: FASTING GLUCOSE 100 TO 125 MG/DL IS CONSISTENT WITH IMPAIRED FASTING GLUCOSE. FASTING GLUCOSE >125 MG/DL IS CONSISTENT WITH DIABETES. RANDOM GLUCOSE >200 MG/DL WITH HYPERGLYCEMIC SYMPTOMS IS CONSISTENT WITH DIABETES. PER ADA GUIDELINES BUN 8 6 - 24 MG/DL 12/10/2024 4:43 PM T [facility] CREATININE S/P/B 1.48(H) 0.70 - 1.30 MG/DL 12/10/2024 4:43 PM T [facility] CALCIUM S/P/B 9.1 8.4 - 10.5 MG/DL 12/10/2024 4:43 PM [facility] BILIRUBIN TOTAL S/P/B 0.6 0.2 - 1.0 MG/DL 12/10/2024 4:43 PM [facility] Comment: THIS ASSAY IS NOT RECOMMENDED FOR PATIENTS UNDERGOING TREATMENT WITH ELTROMBOPAG DUE TO THE POTENTIAL FOR FALSELY ELEVATED RESULTS. ALKALINE PHOSPHATASE S/P/B 74 45 - 115 U/L 12/10/2024 4:43 PM [facility] AST 70(H) 15 - 37 U/L 12/10/2024 4:43 PM [facility] ALT 71(H) 16 - 63 U/L 12/10/2024 4:43 PM [facility] TOTAL PROTEIN S/P/B 7.6 6.4 - 8.2 G/DL 12/10/2024 4:43 PM [facility] ALBUMIN S/P/B 4.1 3.4 - 5.0 G/DL 12/10/2024 4:43 PM [facility] ANION GAP 13.2 5.0 - 15.0 MMOL/L 12/10/2024 4:43 PM [facility] OSMOLALITY (CALC) 294 MOSM/KG 025 4:43 PM [facility] Comment:REFERENCE RANGE NOT ESTABLISHED GFR ESTIMATE 64(L) >89 ML/MIN/1. 73 M2 12/10/2024 4:43 PM [facility] GFR NOTES GFR REFERENCE S: 12/10/2024 4:43 PM CDT [facility] Comment: THE ESTIMATED GFR IS CALCULATED [...] <15 ml/min/1.73 m2 12/10/2024 4:07 PM CDT [facility] LABORATORY Final Result [facility] Critical access [facility] [place] [address], * (ABNORMAL) CBC W/DIFF AUTOMATED (12/10/2024 4:07 PM CDT) WBC 9.73 4.00 - 10.80 x10'3/uL 12/10/2024 4:18 PM CDT [facility] RBC 5.87 4.50 - 6.10 x10'6/uL 12/10/2024 4:18 PM CDT [facility] HGB 18.5(H) 13.0 - 18.0 G/DL 12/10/2024 4:18 PM CDT [facility] HCT 51.8 37.0 - 52.0 % 12/10/2024 4:18 PM CDT [facility] MCV 88.2 78.0 - 100.0 FL 12/10/2024 4:18 PM CDT [facility] MCH 31.5(H) 27.0 - 31.0 PG 12/10/2024 4:18 PM CDT [facility] MCHC 35.7 33.0 - 36.0 G/DL 12/10/2024 4:18 PM CDT [facility] RDW 14.9(H) 11.5 - 14.5 % 12/10/2024 4:18 PM CDT [facility] PLT 309 150 - 350 x10'3/uL 12/10/2024 4:18 PM CDT [facility] MPV 8.7 7.4 - 10.4 FL 12/10/2024 4:18 PM CDT [facility] CBC COMMENT NORMAL REFERENCE RANGE NOT ESTABLISHED FOR THE PROPORTIONAL LEUKOCYTE DIFFERENTIAL. 12/10/2024 4:18 PM CDT [facility] NEUTROPHILS % 69.6 % 12/10/2024 4:18 PM CDT [facility] LYMPHOCYTES % 21.7 % 12/10/2024 4:18 PM CDT [facility] MONOCYTES % 7.0 % 12/10/2024 4:18 PM CDT [facility] EOSINOPHILS % 0.6 % 12/10/2024 4:18 PM CDT [facility] BASOPHILS % 0.8 % 12/10/2024 4:18 PM CDT [facility] IMMATURE GRANS % 0.3 % 12/11/19 4:18 PM CDT [facility] NRBC % 0.0 % 12/10/2024 4:18 PM CDT [facility] ABS. NEUTROPHILS 6.77 1.60 - 8.30 x10'3/uL 12/10/2024 4:18 PM CDT [facility] ABS. LYMPHOCYTES 2.11 0.80 - 4.70 x10'3/uL 12/10/2024 4:18 PM CDT [facility] ABS. MONOCYTES 0.68 0.00 - 1.50 x10'3/uL 12/10/2024 4:18 PM CDT [facility] ABS. EOSINOPHILS 0.06 0.00 - 0.40 x10'3/uL 12/10/2024 4:18 PM CDT [facility] ABS. BASOPHILS 0.08 0.00 - 0.20 x10'3/uL 12/10/2024 4:18 PM CDT [facility] ABS. IMMATURE GRANULOCYTES 0.03 0.00 - 0.03 x10'3/uL 12/10/2024 4:18 PM CDT [facility] ABS. NUCLEATED RBC'S 0.00 0.00 - 0.01 x10'3/uL 12/10/2024 4:18 PM CDT [facility] 12/10/2024 4:07 PM CDT us Ally Simpson DO LABORATORY Final Result Performing Organization Address City/[facility]/ZIP Co de Phone Number [facility] [address] [place] [address], * THYROID STIM HORMONE, TSH (12/10/2024 4:07 PM CDT) TSH 2.418 0.358 - 3.740 uIU/ML 12/10/2024 4:43 PM CDT [facility] Comment: ASSAY PERFORMED BY CHEMILUMINESCENT IMMUNOASSAY METHODOLOGY USING SIEMENS DIMENSION REAGENT. PATIENT RESULTS DETERMINED BY ASSAYS FROM DIFFERENT MANUFACTURERS AND/OR BY DIFFERENT METHODS MAY NOT BE COMPARABLE. 12/10/2024 4:07 PM CDT us Ally Simpson DO LABORATORY Final Result Performing Organization Address City/[facility]/ZIP Co de Phone Number [facility] [address] [place] [address], * (ABNORMAL) SALICYLATE (12/10/2024 4:07 PM CDT) SALICYLATES 0.8(L) 2.8 - 20.0 MG/DL 12/10/2024 4:43 PM CDT [facility] 12/10/2024 4:07 PM CDT us Ally Simpson DO LABORATORY Final Result Performing Organization Address City/[facility]/ZIP Co de Phone Number [facility] [address] [place] [address], * (ABNORMAL) ACETAMINOPHEN (12/10/2024 4:07 PM CDT) Pathologist [facility] ACETAMINOPHEN S/P/B 0.0(L) 10.0 - 30.0 MCG/ML 12/10/2024 4:43 PM CDT [facility] 12/10/2024 4:07 PM CDT us Ally Simpson DO LABORATORY Final Result Performing Organization Address [facility]/[place] [address], * CORONAVIRUS (COVID-19) ANTIGEN (12/10/2024 4:00 PM CDT) [facility] CORONAVIRUS ANTIGEN IA NEGATIVE NEGATIVE 12/10/2024 4:36 PM CDT [facility] Comment: NEGATIVE RESULTS DO NOT RULE [...] SPECIMEN TYPE NASAL 12/10/2024 4:08 PM CDT [facility] NASAL NASAL STRUCTURE / Unknown 12/10/2024 4:00 PM CDT us Ally Simpson DO MICROBIOLOGY - GENERAL ORDERAB LES Final Result Performing Organization Address City/[facility]/ZIP Co de Phone Number [facility] [address] [place] [address], * (ABNORMAL) DRUG SCREEN RAPID (12/10/2024 4:00 PM CDT) [facility] Signature CANNABINOIDS SCREEN (U) NEGATIVE NEGATIVE 12/10/2024 4:30 PM CDT [facility] PHENCYCLIDINE PCP (U) NEGATIVE NEGATIVE 12/10/2024 4:30 PM CDT [facility] COCAINE METABOLITES (U) NEGATIVE NEGATIVE 12/10/2024 4:30 PM CDT [facility] METHAMPHETAMINE SCREEN (U) NEGATIVE NEGATIVE 12/10/2024 4:30 PM CDT [facility] OPIATE SCREEN (U) NEGATIVE NEGATIVE 025 4:30 PM CDT [facility] AMPHETAMINE SCREEN (U) POSITIVE(A) NEGATIVE 12/10/2024 4:30 PM CDT [facility] BENZODIAZEPINES SCREEN (U) NEGATIVE NEGATIVE 12/10/2024 4:30 PM CDT [facility] TRICYCLIC ANTIDEPRESSANT SCREEN (U) NEGATIVE NEGATIVE 12/10/2024 4:30 PM CDT [facility] METHADONE (U) NEGATIVE NEGATIVE 12/10/2024 4:30 PM CDT [facility] BARBITURATES SCREEN (U) NEGATIVE NEGATIVE 12/10/2024 4:30 PM CDT [facility] OXYCODONE SCREEN (U) NEGATIVE NEGATIVE 12/10/2024 4:30 PM CDT [facility] URINE TOX COMMENT THIS TEST METHODOLOGY IS DESIGNED AND OFFERED A RAPID TURNAROUND, QUALITATIVE SCREENING PROCEDURE TO AID IN THE IMMEDIATE MEDICAL ASSESSMENT OF PATIENTS SUSPECTED OF SUBSTANCE ABUSE. 12/10/2024 4:09 PM CDT [facility] Comment: CLINICAL CONSIDERATION AND PROFESSIONAL JUDGMENT MUST BE APPLIED TO ANY DRUG OF ABUSE TEST RESULT, BOTH POSITIVE AND NEGATIVE. CONFIRMATORY QUANTITATIVE RESULTS ARE AVAILABLE THROUGH OUR REFERENCE LABORATORY. URINE SPECIMEN / Unknown 12/10/2024 4:00 PM CDT us Ally Simpson DO URINE ORDERABLES Final Result [facility] [address] [place] [address], * (ABNORMAL) URINALYSIS (12/10/2024 4:00 PM CDT) COLOR (U) YELLOW 12/10/2024 4:32 PM CDT [facility] TRANSPARENCY CLEAR 12/10/2024 4:32 PM CDT [facility] SPECIFIC GRAVITY (U) 1.005 1.000 - 1.025 12/10/2024 4:32 PM CDT [facility] Comment:LESS THAN OR EQUAL T O U PH 6.0 5.0 - 8.0 12/10/2024 4:32 PM CDT [facility] LEUKOCYTES (U) NEGATIVE NEGATIVE 12/10/2024 4:32 PM CDT [facility] NITRITES NEGATIVE NEGATIVE 12/10/2024 4:32 PM CDT [facility] PROTEIN RANDOM (U) TRACE(A) NEGATIVE 12/10/2024 4:32 PM CDT [facility] GLUCOSE (U) NEGATIVE NEGATIVE 12/10/2024 4:32 PM CDT [facility] KETONES MG/DL (U) NEGATIVE NEGATIVE 12/10/2024 4:32 PM CDT [facility] UROBILINOGEN 0.2 <1.0 EU/DL 12/10/2024 4:32 PM CDT [facility] BILIRUBIN (U) NEGATIVE NEGATIVE 12/10/2024 4:32 PM CDT [facility] BLOOD (U) NEGATIVE NEGATIVE 12/10/2024 4:32 PM CDT [facility] WBC/HPF 5-10(A) 0 - 5 /HPF 12/10/2024 4:32 PM CDT [facility] RBC/HPF 0-5 0 - 5 /HPF 12/10/2024 4:32 PM CDT [facility] EPI/LPF RARE /LPF 12/10/2024 4:32 PM CDT [facility] BACTERIA (U) 1+ /HPF 12/10/2024 4:32 PM CDT [facility] OTHER CASTS (U) HYALINE /LPF 4:32 PM CDT [facility] Comment:0-5 URINE SPECIMEN OBTAINED BY CLEAN CATCH PROCEDURE / Unknown 12/10/2024 4:00 PM CDT us Ally Simpson DO URINE ORDERABLES Final Result [facility] [address] [place] [address], from Last 3 Months Insurance [facility] Care Teams Patient Access Registrar Relationship Specialty Start Date End Date None, Provider, PCP - General UNKNOWN PHYSICIAN SPECIALTY 12/10/24
--- NOTE | 2025-02-03 18:41 | PC.NURSE ---
Pt. remains alert, A&Ox4. Pt. updated of plan and ok with it. Pt. sitting up in bed eating. Sitter remains at bedside. Denies any pain. No GI symptoms.
--- NOTE | 2025-02-03 20:46 | PC.NURSE ---
Spoke to [place] [facility]. they requested results for his urine drug screen as well as his alcohol level and kidney function. they reccomended that when we repeat the pts EtOH to also repeat creatinine and BUN to trend. provider notified
--- NOTE | 2025-02-03 22:12 | PC.NURSE ---
Pt. is alert, A&Ox4. at bedside. No complaints. No abdominal pain. Speech is clear. Sitter remains at bedside.
[2025-02-03 22:33] LABS: Anion Gap 12 mmol/L (4-12); Blood Urea Nitrogen 8 mg/dL (9-20); Calcium 8.4 mg/dL (8.4-10.2); Carbon Dioxide 20 mmol/L (22-30); Chloride 107 mmol/L (98-107); Estimated CRCL calculation 92 ml/min; Estimated Glomerular Filt Rate > 60; Glucose 96 mg/dL (65-110); Potassium 3.4 mmol/L (3.4-5.0); Sodium 139 mmol/L (137-145)
--- NOTE | 2025-02-04 01:10 | PC.NURSE ---
This RN spoke with [place] [facility] and updating about pts discharge
[2025-02-04 01:32] VITALS: BP 130/82; PULSE 80; RESP 19; O2SAT 100
[2025-02-04 01:33] VITALS: BP 130/82; PULSE 80; RESP 19; O2SAT 100
== END 2025-02-04 01:39 | disposition home or self-care (01) ==
PROVIDERS: Student in an Organized Health Care Education/Training Program; Emergency Provider Emergency Medicine
DX: T39.312A Poisoning by propionic acid derivatives, intentional self-harm, initial encounter (principal); Z20.822 Contact with and (suspected) exposure to COVID-19; F32.A Depression, unspecified; I45.10 Unspecified right bundle-branch block
CPT/HCPCS: 36415; 80048; 80053; 80143; 80179; 80307; 81001; 82077; 84443; 85025; 87086; 87635; 93005; 99283